=== PATIENT | male | born 1970 | race Caucasian/White ===

== ENCOUNTER 2024-11-20 14:14 | Observation (INO) | payer BC ==
[2024-11-20] MEDS: SODIUM CHLORIDE 0.9% 500 ML INFUS.BAG IV ONE (16:42)
[2024-11-20 16:46] LABS: ABSOLUTE IMMATURE GRANULOCYTES 0.02 x10^3/uL (0.0-0.031); BASOPHILS # 0.05 x10^3/uL (0.01-0.08); EOSINOPHIL % 1.3 % (0.8-7.0); EOSINOPHILS # 0.11 x10^3/uL (0.04-0.54); HEMATOCRIT 45.4 % (40.1-51.0); HEMOGLOBIN 15.5 g/dL (13.7-17.5); MCHC 34.1 g/dl (32.3-36.5); MEAN CELL VOLUME 83.5 fl (79.0-92.2); MEAN PLT VOLUME 9.2 fl (9.4-12.4); MONOCYTE # 0.53 x10^3/uL (0.30-0.82); MONOCYTE % 6.2 % (5.3-12.2); PLATELET COUNT 260 x10^3/uL (163-337); RDW 13.9 % (12.2-16.1)
[2024-11-20 17:07] LABS: POTASSIUM 3.7 mmol/L (3.5-5.1)
[2024-11-20 17:09] LABS: CALCIUM 9.7 mg/dL (8.5-10.1)
[2024-11-20 17:10] LABS: ALBUMIN 4.5 g/dl (3.4-5.0); BLOOD UREA NITROGEN 16.2 mg/dL (7-18); MAGNESIUM 1.6 mg/dL (1.8-2.4)
[2024-11-20 17:13] LABS: CREATININE 0.9 mg/dL (0.55-1.3)
[2024-11-20 17:14] LABS: BILIRUBIN,TOTAL 0.6 mg/dL (0.2-1); TOT PROT 7.7 g/dl (6.4-8.2)
[2024-11-20] MEDS ORDERED: MAGNESIUM SULFATE IN WATER 2 GM/50 ML IVPB IVPB ONE (17:22)
[2024-11-20] MEDS: MAGNESIUM SULF 50% (8.12 MEQ/2 ML-1 GM VIAL) IVPB ONE (17:23)
[2024-11-20 21:50] VITALS: BMI 28.2
[2024-11-20] MEDS: INSULIN GLARGINE (LANTUS) 100 UNITS/ML UNITS SQ SCH (22:06)
[2024-11-20] MEDS: HEPARIN NA (PORCINE) 5,000 UNITS/ML 1ML VIAL SQ SCH (22:09)
[2024-11-21] MEDS: BREXPIPRAZOLE (REXULTI) 1 MG TABLET (RESTRICTED TO PSYCIATRY) PO SCH (01:01)
[2024-11-21] MEDS: ESCITALOPRAM OXALATE 10 MG TABLET PO SCH (01:01)
[2024-11-21] MEDS: ALLOPURINOL 300 MG TABLET (FP) PO SCH (01:01)
[2024-11-21] MEDS: INSULIN ASPART SLIDING SCALE (NOVOLOG) 1 VIAL SQ SCH (06:01)
[2024-11-21 07:06] LABS: ABSOLUTE IMMATURE GRANULOCYTES 0.02 x10^3/uL (0.0-0.031); BASOPHILS # 0.04 x10^3/uL (0.01-0.08); EOSINOPHIL % 2.5 % (0.8-7.0); EOSINOPHILS # 0.17 x10^3/uL (0.04-0.54); HEMATOCRIT 40.4 % (40.1-51.0); HEMOGLOBIN 13.8 g/dL (13.7-17.5); MCHC 34.2 g/dl (32.3-36.5); MEAN CELL VOLUME 83.6 fl (79.0-92.2); MEAN PLT VOLUME 9.7 fl (9.4-12.4); MONOCYTE # 0.44 x10^3/uL (0.30-0.82); MONOCYTE % 6.5 % (5.3-12.2); PLATELET COUNT 222 x10^3/uL (163-337); RDW 13.7 % (12.2-16.1)
[2024-11-21 07:26] LABS: POTASSIUM 3.6 mmol/L (3.5-5.1)
[2024-11-21 07:29] LABS: BLOOD UREA NITROGEN 12.4 mg/dL (7-18)
[2024-11-21 07:32] LABS: CREATININE 0.6 mg/dL (0.55-1.3)
[2024-11-21 08:07] LABS: MAGNESIUM 1.7 mg/dL (1.8-2.4)
[2024-11-21 08:11] LABS: PHOSPHOROUS 3.5 mg/dL (2.5-4.9)
[2024-11-21] MEDS ORDERED: BREXPIPRAZOLE (REXULTI) 1 MG TABLET (RESTRICTED TO PSYCIATRY) PO SCH (10:00)
[2024-11-21] MEDS ORDERED: ALLOPURINOL 300 MG TABLET (FP) PO SCH (10:00)
[2024-11-21] MEDS ORDERED: METHYLPHENIDATE HCL PO SCH (10:00)
[2024-11-21] MEDS ORDERED: ESCITALOPRAM OXALATE 10 MG TABLET PO SCH (10:00)
[2024-11-21] MEDS ORDERED: amLODIPine BESYLATE 2.5 MG TABLET (FP) PO SCH (10:00)
[2024-11-21] MEDS: amLODIPine BESYLATE 10 MG TABLET (FP) PO SCH (10:01)
[2024-11-21] MEDS: MAGNESIUM 2GM/50ML STERILE WATER IVPB IVPB ONE (15:24)
[2024-11-21] MEDS: FAMOTIDINE 20 MG TABLET PO SCH (21:34)
[2024-11-21] MEDS ORDERED: VERAPAMIL HCL 120 MG CAP SUSTAINED RELEASE PO SCH (22:00)
[2024-11-22 06:49] LABS: ABSOLUTE IMMATURE GRANULOCYTES 0.03 x10^3/uL (0.0-0.031); BASOPHILS # 0.05 x10^3/uL (0.01-0.08); EOSINOPHIL % 2.4 % (0.8-7.0); EOSINOPHILS # 0.17 x10^3/uL (0.04-0.54); HEMATOCRIT 43.1 % (40.1-51.0); HEMOGLOBIN 14.8 g/dL (13.7-17.5); MCHC 34.3 g/dl (32.3-36.5); MEAN CELL VOLUME 84.3 fl (79.0-92.2); MEAN PLT VOLUME 9.7 fl (9.4-12.4); MONOCYTE # 0.59 x10^3/uL (0.30-0.82); MONOCYTE % 8.5 % (5.3-12.2); PLATELET COUNT 238 x10^3/uL (163-337); RDW 13.7 % (12.2-16.1)
[2024-11-22 07:02] LABS: POTASSIUM 3.7 mmol/L (3.5-5.1)
[2024-11-22 07:23] LABS: BLOOD UREA NITROGEN 11.6 mg/dL (7-18); CALCIUM 9.8 mg/dL (8.5-10.1); MAGNESIUM 1.9 mg/dL (1.8-2.4)
[2024-11-22 07:27] LABS: CREATININE 0.7 mg/dL (0.55-1.3)
[2024-11-22 08:52] VITALS: BP 126/95; PULSE 90; RESP 18; TEMP 97.7
[2024-11-22] MEDS: ENOXAPARIN NA (PORCINE) 40 MG/0.4 ML DISP.SYRIN SQ SCH (10:47)
[2024-11-22] MEDS: LOSARTAN POTASSIUM 50 MG TABLET PO SCH (10:47)
[2024-11-22] MEDS: VERAPAMIL HCL 120 MG CAP SUSTAINED RELEASE PO SCH (10:48)
[2024-11-22] MEDS: amLODIPine BESYLATE 2.5 MG TABLET (FP) PO SCH (10:48)
== END 2024-11-22 13:17 | disposition home or self-care (01) ==
LOC: JER 14:14 → JERBED 16:21 → J4W 21:55
PROVIDERS: ADMIT Internal Medicine; ATTEND Internal Medicine
PROC: 3E023GC Introduction of Other Therapeutic Substance into Muscle, Percutaneous Approach (ICD-10-PCS; principal; 2024-11-20)
PROC: 3E013VG Introduction of Insulin into Subcutaneous Tissue, Percutaneous Approach (ICD-10-PCS; 2024-11-20)
PROC: 3E033GC Introduction of Other Therapeutic Substance into Peripheral Vein, Percutaneous Approach (ICD-10-PCS; 2024-11-20)
PROC: 3E0337Z Introduction of Electrolytic and Water Balance Substance into Peripheral Vein, Percutaneous Approach (ICD-10-PCS; 2024-11-20)
DX: R55 Syncope and collapse (principal); F41.8 Other specified anxiety disorders; I10 Essential (primary) hypertension; I65.29 Occlusion and stenosis of unspecified carotid artery; E11.9 Type 2 diabetes mellitus without complications; F90.9 Attention-deficit hyperactivity disorder, unspecified type; Z90.49 Acquired absence of other specified parts of digestive tract; Z88.8 Allergy status to other drugs, medicaments and biological substances; Z87.891 Personal history of nicotine dependence
CPT/HCPCS: 0241U-QW; 36415; 70551-TC; 71045-TC-FY; 80048; 80053; 82962; 83690; 83735; 84100; 84439; 84443; 84484; 85025; 93005; 93010; 93306-TC; 93880-TC; 99285-25; G0378; J1644